=== PATIENT | female | born 1970 | race Caucasian/White ===

== ENCOUNTER 2025-02-03 18:12 | Emergency (ER) | payer OTHER ==
[~2025-02-03] VITALS: Ht 162.6 cm; Wt 97.8 kg
[2025-02-03] MEDS ORDERED: METFORMIN HCL1000 M1 PO (20:44)
[2025-02-03] MEDS ORDERED: SINGULAIR10 MG PO (20:45)
[2025-02-03] MEDS ORDERED: MOUNJARO10 MG/0.5 (20:50)
[2025-02-03] MEDS ORDERED: CYCLOBENZAPRINE10 MG PO (23:13)
[2025-02-03] MEDS ORDERED: CYCLOBENZAPRINE HCL 10 MG HOME.PACK PO ONE (23:15)
[2025-02-03] MEDS ORDERED: methylPREDNISolone 4 MG HOME.PACK PO ONE (23:15)
[2025-02-03 23:25] VITALS: BP 152/90
== END 2025-02-03 23:25 | disposition home or self-care (01) ==
LOC: ED 18:12
DX: M62.838 Other muscle spasm (principal); M54.31 Sciatica, right side; J45.909 Unspecified asthma, uncomplicated; E11.9 Type 2 diabetes mellitus without complications; Z79.84 Long term (current) use of oral hypoglycemic drugs; Z88.0 Allergy status to penicillin; Z91.048 Other nonmedicinal substance allergy status; Z88.8 Allergy status to other drugs, medicaments and biological substances; Z88.2 Allergy status to sulfonamides; Z88.1 Allergy status to other antibiotic agents; Z88.5 Allergy status to narcotic agent; Z91.040 Latex allergy status
CPT/HCPCS: 99283